=== PATIENT | male | born 1955 | race African-American/Black ===

== ENCOUNTER 2018-01-04 13:26 | Emergency (ER) | payer OTHER ==
[~2018-01-04] VITALS: Ht 180.3 cm; Wt 113.4 kg
--- NOTE | ~2018-01-04 | EKG ---
[place] [address] [place] [address] ELECTROCARDIOGRAM REPORT Name: MALCOMDANIEL MONROEWILFRIDO Room #: DEP Sergey#: [id number] Admission: 01/04/18 Attend Phys: Discharge: 01/04/18 Date of : 55 Report #: [id number] THIS REPORT FOR: //name// [facility] ED Test Date: 2018-01-04 Test Time: 13:35:35 Pat Name: DANIEL العراقي Department: Room: Gender: Tankerman: EMMY : 1955 Requested By: Pasquale Collins Order Number: [id number] MD: Sergio Ortega Measurements Intervals [place] Rate: 72 P: 37 [place]: 179 QRS: 9 QRSD: 95 T: 44 QT: 392 QTc: 430 Interpretive Statements Sinus rhythm Nonspecific ST and T wave abnormality Compared to ECG 02/19/2016 19:46:13 No significant change was found Electronically Signed On 01-07-2018 13:23:25 CDT by Sergio Ortega [email or web address] <ELECTRONICALLY SIGNED> By: Sergio Ortega MD, [facility] 01/07/18 1323 1335 1335 Sergio Ortega MD, FACC /EPI
[~2018-01-04 13:26] MED LIST: ACETAZOLAMIDE250 M1 PO; AMARYL4 MG; ASPIRIN325; AUGMENTIN 875-1 EACH PO; BACTROBAN CREAM30 GM TOP; CRESTOR20 MG; GLUCOPHAGE500 MG PO; IBUPROFEN 800800 M1 PO; IMDUR 30 MG TAB30 M1; JANUMET 50-5001 EACH PO; JANUVIA100 MG; LANTUS; LIPITOR40 MG PO; MONOPRIL20 MG; NEURONTIN 300300 M1; NITROGLYCERIN0.4 MG; NORCO 5-325 TA1 EACH PO; NORVASC10 MG; NOVOLOG100 UNIT/1; PLAVIX 75 MG TA75 MG; PRINIVIL10 MG PO; TOPROL XL50 MG
[2018-01-04 14:17] LABS: ABSOLUTE NEUTROPHILS 6.5 thou/uL (1.4-8.2); BASOPHILS 0.6 % (0.0-2.0); EOSINOPHILS 0.6 % (0.0-3.0); HEMATOCRIT 45.9 % (42.0-52.0); LYMPHOCYTES 20.6 % (24.0-44.0); MCH 27.7 pg (26.0-34.0); MCHC 32.7 g/dL (28.0-37.0); MCV 84.5 fL (80.0-100.0); MONOCYTES 9.2 % (1.0-8.0); PLATELET COUNT 242 thou/uL (150-400); RBC 5.43 mil/uL (4.50-6.00); RDW 15.1 % (10.5-14.5); WBC 9.4 thou/uL (4.0-11.0)
[2018-01-04 14:23] LABS: APTT 20.7 Seconds (24.5-32.8); PROTIME 10.5 Seconds (9.3-11.4)
[2018-01-04 14:53] LABS: ANION GAP 14 mmol/L (7-16); BUN 26 mg/dL (7-18); CALCIUM 10.9 mg/dL (8.5-10.1); CHLORIDE 99 mmol/L (98-107); CO2 26 mmol/L (21-32); CREATININE 1.8 mg/dL (0.7-1.3); GLUCOSE 379 mg/dL (74-106); POTASSIUM 4.2 mmol/L (3.5-5.1); SODIUM 139 mmol/L (136-145)
[2018-01-04 15:02] LABS: ALBUMIN 4.1 g/dL (3.4-5.0); MAGNESIUM 2.1 mg/dL (1.8-2.4); SGOT 48 U/L (15-37); SGPT 37 U/L (30-65); TOTAL BILIRUBIN 0.9 mg/dL (<0.1-1.0); TOTAL PROTEIN 8.6 g/dL (6.4-8.2); TROPONIN-I < 0.04 ng/mL (<0.06)
[2018-01-04] MEDS ORDERED: ASPIR 8181 MG PO (15:31)
[2018-01-04] MEDS ORDERED: CHLORTHALIDONE25 MG PO (15:33)
[2018-01-04] MEDS ORDERED: BETAMETHASONE V60 ML TOP (15:33)
[2018-01-04] MEDS ORDERED: TRAMADOL 50 MG50 MG PO (15:48)
== END 2018-01-04 16:47 | disposition home or self-care (01) ==
LOC: ER 13:26
PROVIDERS: Emergency Medicine
DX: S20.212A Contusion of left front wall of thorax, initial encounter (principal); S40.011A Contusion of right shoulder, initial encounter; S10.93XA Contusion of unspecified part of neck, initial encounter; H54.7 Unspecified visual loss; E11.22 Type 2 diabetes mellitus with diabetic chronic kidney disease; N18.9 Chronic kidney disease, unspecified; W10.9XXA Fall (on) (from) unspecified stairs and steps, initial encounter; Y93.89 Activity, other specified; Y92.89 Other specified places as the place of occurrence of the external cause; Y99.8 Other external cause status

== ENCOUNTER 2019-06-05 16:35 | Inpatient (IN) | payer OTHER ==
[~2019-06-05] VITALS: Ht 180.3 cm; Wt 105.7 kg
--- NOTE | ~2019-06-05 | EMS ---
[facility] [address] [place] [address] EMS Patient Care Report Name: DANIEL العراقي Room #: 525B-B ADM IN M.R.#: [id number] Admission: 06/05/19 Attend Phys: Jarred Caceres, Discharge: Date of : 55 Report #: [id number] THIS REPORT FOR: //name// Report Transmitted: 06/06/2019 07:14 EMS Care Summary [place], [place]/[facility] Incident [id number] @ 06/05/2019 15:43 Incident Location [address], [place] [address] Patient DANIEL العراقي Male, 64 Years 1955 Patient Address [address] [place] [id number] Patient History Diabetes,Hypertension,Cardiac - Stent, Patient Allergies No known allergies, Patient Medications Furosemide, Metformin, Gabapentin, Lisinopril, Chief Complaint SI Disposition Transported No Lights/[place] Dispatch Reason Diabetic Problem Transported To [facility] Narrative M36 DISPATCHED TO [facility] ON A REPORT OF A DIABETIC PROBLEM. UPON ARRIVAL ON SCENE EMS FIND 64/M PT SITTING ON COUCH IN LIVING ROOM OF [place]IDENCE IN NO APPARENT DISTRESS, PT TALKING TO MOLDER SETTER ON SCENE. MOLDER SETTER ON SCENE STATED SHE WAS CALLED TO SCENE FOR CONCERNS OVER PT LIVING CONDITIONS. DURING [address] [address] EMS Patient Care Report Name: DANIEL العراقي Room #: 525B-B ADM IN .R.#: [id number] Admission: 06/05/19 Attend Phys: Jarred Caceres, DO Discharge: Date of : 55 Report #: [id number] QUESTIONING EMS MOLDER SETTER INFORMED EMS THAT PT STATED HE WAS HAVING THOUGHTS OF SUICIDE AND PUT A HANDGUN TO HIS CHEST THE PRIOR NIGHT. PT AOX4, ADMITTED TO EMS ABOUT HAVING THOUGHTS OF SI AND THAT PT PLACED A HANDGUN TO HIS CHEST AND CONTINUED TO PULL THE TRIGGER WHILE THE GUN WAS UNLOADED. PT STATED HE HAD BEEN DEPRESSED FOR THE PAST COUPLE MONTHS. PT DENIED ANY OTHER PAIN OR MEDICAL COMPLAINTS. PT ESCORTED TO AMBULANCE BY POLICE AND EMS FOR FURTHER EVALUATION. PT SEATED ON STRETCHER IN POSITION OF COMFORT WITH STRETCHER GUARDRAILS PLACED IN UPRIGHT LOCKED POSITION AND SEATBELTS FASTENED. PT VITALS OBTAINED AND SUPPORTIVE CARE PROVIDED EN ROUTE TO [facility]. NO NOTICEABLE CHANGES IN PT CONDITION DURING TRANSPORT TO RECEIVING FACILITY. UPON ARRIVAL TO [facility] PT MOVED INTO FACILITY ON EMS STRETCHER, WHERE PT WAS THEN TRANSFERRED ONTO ER HOSPITAL BED BY EMS AND RECEIVING NURSING STAFF WITHOUT INCIDENT. PT REPORT GIVEN TO RECEIVING NURSING STAFF AND TRANSFER OF PT CARE COMPLETED. Initial Vitals @16:19P: 108,R: 16,BP: 176/80,Pain: 0/10,GCS: 15,Glucose: 302,CO: 0,SpO2: 99,Revised Trauma: 12, @16:24P: 102,R: 16,BP: 184/88,Pain: 0/10,GCS: 15,SpO2: 99,Revised Trauma: 12, Assessments @15:54MENTAL:Person Oriented,Time Oriented,Place Oriented,Event Oriented,SKIN:HEENT:Eyes: Left: Blind,LUNG SOUNDS:Left Upper: No Abnormalities,Right Upper: No Abnormalities,Left Lower: No Abnormalities,Right Lower: No Abnormalities,ABDOMEN:Left Upper: No Abnormalities,Right Upper: No Abnormalities,Left Lower: No Abnormalities,Right Lower: No Abnormalities,PELVIS//GI:EXTREMITIES:Left Leg: Weakness,Left Arm: No Abnormalities,Right Arm: No Abnormalities,Right Leg: No Abnormalities,PULSE:Radial: 2+ Normal,NEURO: Impression Behavioral/psychiatric episode Procedures @16:15StretcherResponse: Unchanged@15:53ALS AssessmentResponse: UnchangedSucceeded Timeline 15:40,Call Received 15:40,Dispatch Notified 15:43,Dispatched 15:44,En Route 15:49,On Scene 15:52,At Patient 15:53,ALS Assessment,Response: UnchangedSucceeded, 16:15,Stretcher,Response: Unchanged [address] [address] EMS Patient Care Report Name: DANIEL العراقي MONROEWILFRIDO Room #: 525B-B ADM IN .R.#: [id number] Admission: 06/05/19 Attend Phys: Jarred Caceres DO Discharge: Date of : 55 Report #: [id number] 16:19,BP: 176/80 M,PULSE: 108,RR: 16 R,SPO2: 99 Ox,ETCO2: ,B,PAIN: 0,GCS: 15, 16:20,Depart Scene 16:24,BP: 184/88 M,PULSE: 102,RR: 16 R,SPO2: 99 Ox,ETCO2: ,BG: ,PAIN: 0,GCS: 15, 16:30,At Destination 16:42,Call Closed Disclaimer v1.1 Copyright 2019 1.618 Technology This EMS Care Summary contains data elements from the applicable legal record (which may be displayed differently). It is designed to provide pertinent information for the following purposes: continuity of care, clinical quality, and state data reporting. The complete legal record is available to ED staff and administrators of the receiving hospital in [employer] Patient Tracker. All data is provided "as is."
[~2019-06-05 16:35] MED LIST changes: +ASPIR 8181 MG PO; +BETAMETHASONE V60 ML TOP; +CHLORTHALIDONE25 MG PO; +TRAMADOL 50 MG50 MG PO
[2019-06-05 16:36] VITALS: BP 185/123
--- NOTE | 2019-06-05 18:30 | NUR ---
THIS RN SPOKE WITH KAMILAH, DAUGHTER AND FELA, SPOUSE WHO BOTH STATE THAT PT HAS BEEN AGITATED AND AGGRESSIVE SINCE LAST MONDAY AND HAVE NOT BEEN OVER TO HIS HOUSE IN SEVERAL DAYS DUE TO FEAR OF HIS REACTIONS; THEY ARE IN ROUTE TO ED NOW
[2019-06-05 19:55] LABS: URINE BILIRUBIN NEGATIVE (Negative); URINE BLOOD TRACE (Negative); URINE CLARITY CLEAR; URINE COLOR YELLOW; URINE GLUCOSE-RANDOM* 3+ (Negative); URINE KETONES 1+ (Negative); URINE LEUKOCYTES-REFLEX NEGATIVE (Negative); URINE NITRITE-REFLEX NEGATIVE (Negative); URINE PROTEIN (DIPSTICK) 1+ (Negative); URINE UROBILINOGEN 0.2 E.U./dl (0.2-1.0)
[2019-06-05 19:59] LABS: ABSOLUTE NEUTROPHILS 3.6 thou/uL (1.4-8.2); BASOPHILS 0.9 % (0.0-2.0); EOSINOPHILS 1.4 % (0.0-3.0); HEMATOCRIT 44.2 % (42.0-52.0); HEMOGLOBIN 14.7 gm/dL (14.0-18.0); LYMPHOCYTES 39.7 % (24.0-44.0); MCH 28.4 pg (26.0-34.0); MCHC 33.3 g/dL (28.0-37.0); MCV 85.3 fL (80.0-100.0); MONOCYTES 8.4 % (1.0-8.0); PLATELET COUNT 221 thou/uL (150-400); POLYS 49.6 % (36.0-66.0); RBC 5.18 mil/uL (4.50-6.00); RDW 15.2 % (10.5-14.5); WBC 7.3 thou/uL (4.0-11.0)
[2019-06-05 20:03] LABS: ANION GAP 11 mmol/L (7-16); BUN 20 mg/dL (7-18); CALCIUM 9.7 mg/dL (8.5-10.1); CHLORIDE 102 mmol/L (98-107); CO2 24 mmol/L (21-32); CREATININE 1.5 mg/dL (0.7-1.3); GLUCOSE 377 mg/dL (74-106); POTASSIUM 4.3 mmol/L (3.5-5.1); SODIUM 137 mmol/L (136-145)
[2019-06-05 20:04] LABS: AMP/METHAMP Negative (Negative); BARBITURATES Negative (Negative); BENZODIAZEPINES Negative (Negative); COCAINE Negative (Negative); METHADONE Negative (Negative); OPIATES Negative (Negative); PCP Negative (Negative)
[2019-06-05 20:07] LABS: SALICYLATE < 2.8 mg/dL (2.8-20.0)
[2019-06-05 20:08] LABS: SQUAMOUS 0-3 Few /LPF (0-3)
[2019-06-05 20:09] LABS: MUCUS 0-3 Light strn/LPF (None Seen)
[2019-06-05 20:10] LABS: AMORPHOUS URATES Few /LPF (None Seen); BACTERIA-REFLEX 1-9 Few /HPF (None Seen); HYALINE CASTS 0-3 Few /LPF (None Seen); URINE RBC 0-2 Rare /HPF (0-2); URINE WBC-REFLEX 0-5 Rare /HPF (0-5)
[2019-06-05 22:00] VITALS: BP 161/89
[2019-06-05 22:16] VITALS: BP 147/79
--- NOTE | 2019-06-06 01:49 | NUR ---
STAT INSULIN ADMINISTRATION SQ GIVEN TO PATIENT. LANTUS 25U STAT AND HUMALOG 8U STAT FOR GLUCOSE OF 350 PER TELEPHONE ORDER FROM DR BILL. PATIENT IS SLEEPING AND DROWSY. PATIENT HAD GEODON INJECTION IN ER A FEW HOURS AGO. WILL RECHECK GLUCOSE IN ONE HOUR AND NOTIFY DR JONES IF STILL ABOVE 250.
[2019-06-06 02:10] VITALS: BP 147/79
--- NOTE | 2019-06-06 03:05 | NUR ---
REPEATED GLUCOSE CHECK AT 0245 AND THE READING WAS AT 343. NOTIFIED DR JONES BY PHONE AND HE SAID TO JUST REPEAT GLUCOSE BEFORE BREAKFAST AND WILL REASSESS WHAT WE NEED TO DO AT THAT TIME. DR DID NOT WANT TO GIVE MORE INSULIN AT THIS TIME IN FEAR OF IT KICKING IN AND CAUSING HIM TO GO TOO LOW. PATIENT IS SLEEPING COMFORTABLY. STATES WE CAN ASSESS WHEN PATIENT WAKES UP IF HE NEEDS A 1:1 WITH HIM BASED ON HIS BEHAVIORS WITH HIS SI. WILL CONTINUE TO MONITOR.
[2019-06-06 14:41] LABS: CHOLESTEROL 209 mg/dL (<200); HDL CHOLESTEROL 35 mg/dL (>40); LDL CHOLESTEROL 123 mg/dL (<100); SERUM ASSESSMENT Clear; TRIGLYCERIDE 255 mg/dL (<150); VLDL 51 mg/dL (<40)
--- NOTE | 2019-06-06 15:53 | NUR ---
PATIENT HAS BEEN UP AND OUT ON THE UNIT, HE IS ALERT AND ORIENTED X 3-4, ABLE TO VOICE NEED. PATIENT TOOK ALL HIS MEDICATION WHOLE WITHOUT DIFFICULTY. PATIENT IS EATING MEALS AND DRINKING FLUID WELL. PATIENT DENIES SUICIDAL AND HOMOCIDAL IDEATION. HE DENIES DEPRESSION/ANXIETY. PATIENT REQUIRES GUIDED JARAD WITH AMBULATION RELATED TO BLINDNESS. PATIENT HAS A CANE, BUT UNABLE TO MANEUVER DUE TO UNFAMILIER ENVIRONMENT. PATIENT HAS BEEN CALM, COOPERATIVE WITH CARE. PATIENT EXPRESSED HIS SADNESS, STATES " I WAS LAYING DOWN IN MY HOUSE, AND THEY SHOWED UP AND BROUGHT ME HERE, WHY I DO NOT KNOW". PATIENT HAS BEEN PARTICIPATING IN ALL GROUP THERAPY. HE DENIES HAVING PHYSICAL PAIN AT THIS TIME. NO AGGRESSION OR AGITATION NOTED AT THIS TIME. PATIENT'S GOAL AND CONCERN TODAY IS "TO GET THE HELL OUT OF HERE". NO SIGN AND SYMPTOMS OF HYPER/HYPOGRLYCEMIA NOTED, INSULING GIVEN PER ORDER, WILL MONITOR FOR SAFETY.
[2019-06-06 21:41] VITALS: BP 125/80
[2019-06-06 23:06] LABS: GLYCOHEMOGLOBIN (HGB A1C) 11.9 % (4.8-5.6)
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
[2019-06-07 09:08] VITALS: BP 145/86
--- NOTE | 2019-06-07 12:51 | NUR ---
MAYLIN spoke with Yanci Fajardo DEGREASING WHEEL OPERATOR with Adult protective services [phone], and she provided information regaridng this pt's home conditions. She reported that this pt had sought out mental health services a few days ago for SI with [facility] , and they were going to help him with suicide prevention services but due to his $3000 a month income they could not provide case management. This pt will refuse any paid in home help, LTC or family to help out. His home is in disarray and his kitchen is unusable. He has bags of medications that he is not taking and has not managed his diabetes. He has safety hazrds including stairs in the home. This pt has a HX of anger and behavorial issues that impede getting the help he needs in the home. Yanci Fajardo recomends that this pt find placement in LTC and is willing to be a resource for social HX and what the outcome is.
--- NOTE | 2019-06-07 18:34 | NUR ---
ASSUMED CARE AT 1300. PT IN DAY ROOM ASKING WHEN HE IS GOING HOME. PT KEEPS STATING THAT HE IS SUPPOSED TO BE LEAVING TODAY. PT QUESTIONING IF HE HAS CLOTHES LEFT BY FAMILY. FAMILY DID LEAVE A BAG OF CLOTHES THAT NEED TO BE INVENTORIED BY STAFF.
[2019-06-07 19:20] VITALS: BP 152/103
--- NOTE | 2019-06-07 22:54 | NUR ---
Care assumed of patient at 1915: Patient alert and oriented x3, disoriented with current situation. Patient easily agitated and irritable this evening. Patient frustrated with not being able to go home today. Patient states that people are lying to him. When asked why he was in the hospital, patient gave multiple stories. Patient first stated that he was here because he just wanted to "come check it out". Patient then stated that he did have a gun but he never pulled the trigger. When asked about SI, patient states that he has occasional thoughts because he doesn't like people taking advantage of him and lying to him. Patient denies HI/AH/VH at this time. Patient appears paranoid about his surroundings, his family and his personal belongings. Patient states "everyone is out to get me". Patient did report feeling depressed due to the loss of multiple family members at once and their birthdays being this month and next month. Reports that this is a "hard time of year" for him. Patient enjoyed listening to the baseball game in the day room this evening. Personal inventory was logged and patient was provided with his clothing and his talking wrist watch. Patient declined HS snack but did consume 480cc water with encouragement.
[2019-06-08 05:09] LABS: CREATININE (ALB/CR) 117.5 mg/dL (Not Estab.); MICROALB:CREAT 55.7 (0.0-30.0); MICROALBUMIN-RND URINE 65.4 ug/mL (Not Estab.)
[2019-06-08 08:38] VITALS: BP 137/92
--- NOTE | 2019-06-08 09:44 | NUR ---
07: Report rec from noc shift, care assumed. Pt sitting in tv/dining room, alert, visiting with other pts. : Ambulatory with walker in DR, feeds self a.m. meal, takes meds whole w/o difficulty. Pt voices that he "wants to leave and that this whole thing is bull shit." Pt educated about dismissal protocol, safety and that psychiatrist will be in today to discuss options. Pt became angry, stating "there isn't even a real Dr here." "I don't see anyone here who is aware or knows why I'm being held here." Unable to distract pt or re-direct with current events or activities. Attended 899 therapy group, observed sleeping during group, no participation noted.
--- NOTE | 2019-06-08 16:21 | NUR ---
MAYLIN called Briseida Hui, Pt's ex to schedule a meeting for 06/09/19 @ 1pm
[2019-06-08 19:25] VITALS: BP 149/94
--- NOTE | 2019-06-09 00:05 | NUR ---
Care assumed of patient at 1915: Patient alert and oriented x3, disoriented on situation. Patient irritable regarding admission and states that he wants to go home. Patient in denial about what had occurred prior to admission to the hospital. Patient had 2 different phone calls this evening. Patient pleasant and cooperative with cares. Patient states that he is "fine". Denies pain or discomfort. Took HS medication without difficulty. Patient declined HS snack. Patient encouraged to drink large cup of water and was compliant. Patient enjoyed listening to the football game with peers this evening. Patient assisted to bed with staff assist x1 and has been resting quietly since.
[2019-06-09 09:13] VITALS: BP 117/76
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
--- NOTE | 2019-06-09 11:04 | NUR ---
ASSUMED CARE OF PT AT 0740. PT IS A&OX4. IS ON ROOM AIR. IS STABLE. REPORTS BACK PAIN THAT IS BEING MANAGED WITH TYLENOL. IS UP WITH CONTACT GUARD ASSIST & WALKER. PT IS LEGALLY BLIND. IS ABLE TO SEE SHADOWS. FALL PRECAUTIONS & FREQUENT ROUNDING MAINTAINED. PT IS CURRENTLY IN THE DINNING ROOM TALKING WITH THE OTHER PATIENTS. WILL CONTINUE TO MONITOR.
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
[2019-06-09 20:14] VITALS: BP 158/110
[2019-06-09 23:02] VITALS: BP 158/82
--- NOTE | 2019-06-10 00:35 | NUR ---
ASSISTED PATIENT TO HIS ROOM FOR BED TONIGHT. HE IS FRUSTRATED WITH DR BILL. HE STATES HE TOLD HIM THAT HE COULD GO HOME AND ALSO TOLD HIM HE HAD PASSED THE TEST. HE STATES THAT NOW DR BILL SAYS HE CANNOT GO HOME AND HE FEELS LIKE HE IS PLAYING GAMES WITH HIM. HE STATES HE IS GOING TO CALL THE MEDIA ON THIS ONE. WE TALKED AND DISCUSSED WITH HIM THAT THE DOCTOR WANTS TO MAKE SURE THAT PATIENT HAS A DPOA SAT UP FOR HIS HEALTH BEFORE HE GOES HOME. PATIENT STATES THAT HIS EX IS HIS DPOA. LET PATIENT GO ON TO TALK SOME MORE. THIS NURSE LISTENED AND TOLD HIM THERE WAS NOTHING THAT COULD BE DONE TONIGHT BUT TOMORROW IS ANOTHER DAY AND HE NEEDS TO GET HIS REST SO HE CAN TACKLE THIS SITUATION WITH A CLEAR MIND. PATIENT UNDERSTOOD AND LAID DOWN AND HAS BEEN SLEEPING SINCE. HE WAS ALSO CONCERNED BECAUSE HE HAD NOT RECEIVED HIS EYE GTTS FROM HOME. THE EYE GTTS WERE HERE TONIGHT AND WERE APPLIED TO RIGHT EYE. PATIENT CONFUSED ON EVENTS THAT HAPPENED ON HIS ADMISSION. HE STATES HE JUST CAME UP HERE TO SEE THE FACILITY AND ENDED UP HAVING TO STAY. PATIENT IS LEGALLY BLIND AND DOES AMBULATE WITH HELP WITH HIS WALKER. NO OTHER ISSUES AT THIS TIME. CONTINUING TO MONITOR.
[2019-06-10 09:41] VITALS: BP 153/107
--- NOTE | 2019-06-10 17:04 | NUR ---
SW assisted the pt with completing the DPOA documentation. Pt was willing to make his ex- the primary, and niece Katerine the secondary. SW assisted with it getting notarized by a notary.
--- NOTE | 2019-06-10 17:49 | NUR ---
0700: Report rec from [facility] mon[facility] shift, care assumed. 0850: Ambulatory to DR, useing walker for assist, gait steady. Pt refused a.m. meal, 0900 meds, and insulin. Pt making statements to this nurse "I don't give a shit if I ." "i'm not taking anything from you or anyone else." Dr. reno notified of elevated b/p, (154/107) and pts refusal to take HTN meds,new order for clonidine patch. Dr. stevenson here, notified of pts refusal and new order from Dr. Reno. 1130: Pt refused clonidine patch, pulled it off, 3 staff members attempted to educate and re-direct pt, w/o success. 1500: Pt started on Haldol 1mg po BID, initial dose started, pt cooperative with taking medications. 1600: Family here, pt pleasant and ccoperative. Insulin 75/25, 30 units given.
[2019-06-10 19:58] VITALS: BP 114/63
--- NOTE | 2019-06-10 23:23 | NUR ---
PATIENT IN BED SLEEPING BUT EASILY AWAKENED WHEN ADDRESSED WHEN THIS NURSE CAME ON SHIFT TONIGHT. PATIENT PLEASANT AND COOPERATIVE. NO COMPLAINING OR AGITATION TONIGHT. PATIENT TOOK HIS MEDS. HE TOOK HIS NEW ORDER OF HALPERIDOL 1MG AT HS. HE IS TO BEGIN HALPERIDOL 2MG BID IN THE MORNING. PATIENT IS TOLERATING WELL. EYE GTTS TO RIGHT EYE PLACED. PATIENT HAS NOT HAD BM FOR 4 DAYS NOW. DID NOT WANT TO TAKE ANYTHING TONIGHT FOR BOWELS. BOWEL SOUNDS HYPOACTIVE IN ALL 4 QUADRANTS. ABDOMEN SOFT. PATIENT SLEEPING AT THIS TIME. WILL CONTINUE TO MONITOR.
[2019-06-11 00:16] VITALS: BP 114/63
--- NOTE | 2019-06-11 02:00 | NUR ---
ASSISTED PATIENT TO THE BATHROOM. HE URINATED ON HIMSELF BEFORE GETTING TO THE TOILET. HELPED HIM WITH CLEAN UP AND WASHED URINE OFF AND CLEANED FLOOR AND PUT NEW PANTS AND YELLOW NON SLIP SOCKS ON PATIENT. PATIENT FRUSTRATED THAT HE KEEPS DOING THIS. DISCUSSED THAT HE HAD BEEN SLEEPING SOUND AND AWOKE TO URGENCY AND THAT PROSTATE AND HIGH DIABETES SUGARS CAN CAUSE THIS SOME TOO. PATIENT REMAINED CALM AND COOPERATIVE AND THANKED ME FOR HELPING HIM. HE STATES HE WAS DREAMING ABOUT THE RAILROAD AND THAT HE MISSES WORKING FOR THE [employer]. WE TALKED BRIEFLY AND HE WENT BACK TO TRY AND SLEEP. DISCUSSED USING A DISPOSABLE BRIEF D/T HIS URGENCY ON URINATION AND DRIBBLING. EXPLAINED THIS IS NOT UNCOMMON PROBLEM WE AGE. PATIENT REFUSING DISPOSABLE BRIEF AT THIS TIME. PATIENT IN CLEAN GOWN AND SCRUB PANTS. DENIES PAIN. LAST GLUCOSE AT 0130 WAS 188.
--- NOTE | 2019-06-11 03:35 | NUR ---
PATIENT LAYING IN BED RESTING BUT AWAKE. STATES HE WANTS TO TALK TO THE DOCTOR ABOUT HIS PROSTATE AND URINE FREQUENCY WHEN THEY COME BY TODAY. PATIENT HAS NOT HAD A BOWEL MOVEMENT SINCE 06/06 AND TOLD HIM I WOULD HAVE DAY SHIFT GET AN ORDER TO START SOME MEDICATION TO MOVE HIS BOWELS. HE SAID HE WOULD LIKE THAT. PATIENT IN HOPES OF GOING HOME TODAY OR TOMORROW BUT IS CAUTIOUS IN ADDING THAT HE WAS TOLD HE WOULD GO HOME BEFORE AND IT DID NOT HAPPEN. HE IS PLEASANT AND COOPERATIVE AND EVEN LAUGHING A LITTLE.
--- NOTE | 2019-06-11 08:34 | NUR ---
Date of Admission: 06/05/19 Date of Activity Therapy Assessment: 06/08/19 Activity Goal: Increase leisure modification awareness Initial Goal: 2 Group activities/day Weekly progress towards goal: On track Group participation level: Moderate Behaviors observed: Patient has attended most groups and the few he has missed have been r/t agitation. Patient participates in groups, though only moderately as much of his focus is aimed towards dissatisfaction with being admitted to the unit and his perceptions of being lied to. Patient can be difficult to refocus at times upsetting milieu. Plan: No change towards goal
--- NOTE | 2019-06-11 13:41 | NUR ---
0700: Report rec from [facility] shift, care assumed. [id number]: Ambulatory with walker in halls, and to DR, mood is cooperative, compliant with staff and regiment. Gait steady/slow, requires guidance of staff due to blindness. Feeds self, appeitite good, takes meds whole w/o difficulty. Attended 0900 therapy group, participated in group with out outbursts.
[2019-06-11 16:30] VITALS: BP 119/87
[2019-06-11 19:46] VITALS: BP 144/82
--- NOTE | 2019-06-11 20:21 | NUR ---
ASSUMED CARE @ 19:15. IN DAY ROOM SITTING AT A TABLE FACING THE TELEVISION. ASKED FOR MEDS FOR CONSTIPATION. DENIES PAIN. HRRR, LUNGS CTA, ABD NORMOACTIVE BOWEL SOUNDS X 4 Q.
--- NOTE | 2019-06-11 23:01 | NUR ---
PATIENT COOPERATED WITH MEDICATION ADMINISTRATION, AND TOOK HIS PO MEDS WHOLE WITH WATER. HE TOOK THE MOM THAT HE HAD REQUESTED, BUT GRUMBLED ABOUT IT. DENIES HI, SI AND DEPRESSION. URINAL PROVIDED AT BEDSIDE. FSBS 101 @ 21:10. IN BED AT THIS WRITING, EYES CLOSED, RESPIRATIONS EVEN AND UNLABORED, BED IN LOW POSITION AND ALARM SET. WILL CONTINUE TO MONITOR Q 12 MINUTES FOR PATIENT SAFETY.
[2019-06-11 23:44] VITALS: BP 144/82
--- NOTE | 2019-06-12 05:48 | NUR ---
SLEPT 8 HOURS OVERNIGHT.
[2019-06-12 08:00] VITALS: BP 131/85
--- NOTE | 2019-06-12 18:35 | NUR ---
PATIENT ACCEPTED ALL MEDS THIS SHIFT. REMAINED CALM THROUGHOUT SHIFT AND ABLE TO VERBALIZE NEEDS. PATIENT PARTICIPATED IN ALL GROUPS. PATIENT IN DINING ACUNA THROUGH SHIFT UNTIL APPROX 18:00.
[2019-06-12 19:24] VITALS: BP 146/89
--- NOTE | 2019-06-12 22:41 | NUR ---
PATIENT'S GLUCOSE ACCUCHECK WAS 307 TONITE. IT WAS CHECKED 30 MINUTES AFTER PATIENT HAD EATEN HAMBURGER AND SRI LANKAN FRIES. PATIENT SAT UP IN DAYROOM THIS EVENING AND HAS BEEN PLEASANT AND COOPERATIVE. ASSESSMENT WNL. HS MEDS GIVEN TO HIM AND PATIENT WENT TO BED AROUND 0. PATIENT WITHOUT COMPLAINTS. WILL CONTINUE TO MONITOR. PATIENT AMBULATES WITH WALKER. HE IS LEGALLY BLIND BUT DOES TRY TO BE INDEPENDENT POSSIBLE. NEEDS ASSISTANCE ON WHICH DIRECTION TO GO AND FOLLOWS THE LIGHT/SHADOWS AND FEELS FOR THE WALL/DOOR.
[2019-06-12 23:27] VITALS: BP 146/89
[2019-06-13 09:14] VITALS: BP 119/61
--- NOTE | 2019-06-13 15:32 | NUR ---
UPON INITIAL ASSESSMENT THIS AM WAS COOPERATIVE AND PLEASANT-COMPLIENT WITH AM MEDICATION AND APPRECIAITVE OF ASSITANCE OFFERED BY NURSING STAFF. USING ROLLER WALKER AND SBA AND AMBULATES TO BR-TOLERATES THIS WELL. SOCIAL WITH PEER GROUP. AT APPROX 1430 NOTED TO BECOME MORE COMPLAINTIVE,ANGRY FACIAL EXPRESSION,DEMANDING TO TALK TO THE DOCTOR-STATING "HE IS A LIAR-HE HAS BEEN LYING TO ME THE WHOLE TIME-THIS PLACE IS MAKING ME WORSE AND HE KNOWS IT"SPENT APPROX 20 MINUTES SPEAKING WITH MD PER HIS REQUEST AND NOTED TO BECOME INCREAINGLY AGITATED-YELLING AND SCREAMING AT MD. OFFERED ATIVAN FDOR ANXIETY/AGITATION BUT HE REFUSES STATING"I KNOW WHAT YOU ARE TRYING TO DO PUT ME TO SLEEP"
--- NOTE | 2019-06-13 17:39 | NUR ---
SW sent 3 referral to [facility], [facility] into [facility]. MAYLIN will follow-up with the [facility] to see if pt will be accpeted or evaluated for admission.
[2019-06-13 20:07] VITALS: BP 146/85
--- NOTE | 2019-06-13 22:49 | NUR ---
PATIENT APPEARS SLEEPY AND WORN OUT HE SAT IN DINING ROOM TONITE. HE STATES HE DOES FEEL TIRED. HE DENIES ANY PAIN OR DISCOMFORT. HE IS QUIET AND TO HIMSELF MORE. HE LOOKS SAD. WHEN I ASK ABOUT HOW HIS DAY WAS HE IS UNABLE TO RECALL MUCH. JUST SAYS IT WAS LONG. PATIENT'S GLUCOSE WAS 246 TONITE AFTER EATING HIS SNACK OF SF COOKIES. PATIENT IS LEGALLY BLIND AND USES WALKER TO AMBULATE. ASSISTED PATIENT BACK TO ROOM. URINAL ON SIDERAIL FOR PATIENT TO VOID AT NIGHT. STOOL SOFTNER GIVEN TO PATIENT AT . LAST STOOL 3 DAYS AGO AND HAS HAD SMEARINGS OF STOOL TODAY. PATIENT WAS PLEASANT AND COOPERATIVE TONITE AND TOOK ALL OF HIS MEDS. BED ALARM ON AND BED IN LOW POSITION.
[2019-06-13 23:52] VITALS: BP 146/85
--- NOTE | 2019-06-14 01:46 | NUR ---
PATIENT UP TO THE BATHROOM WITH GUIDANCE ASSISTANCE TO RESTROOM BY SR. MEDIA MANAGER. WHEN I WENT BACK TO CHECK ON PATIENT AFTER HE WENT BACK TO BED, HE WAS LAYING IN BED WIDE AWAKE. I ASKED IF HE NEEDED SOMETHING TO SLEEP. HE STATES HE IS JUST THINKING. HE SAID HE WANTS OUT OF HERE SO BAD AND HE THINKS DR BILL THINKS HE CAN'T TAKE CARE OF HIMSELF BECAUSE OF HIS EYESIGHT. I TOLD HIM THAT THE DOCTOR IS CONCERNED ABOUT THE PATIENT AND HIS MEMORY. HE STATES HE DOES NOT HAVE MEMORY ISSUES AND THAT HE NEEDS TO GET HOME TO TAKE CARE OF HIS HOUSE. PT WAS CALM BUT SAD AND REFLECTIVE. DOESN'T WANT ANYTHING TO SLEEP AND JUST WANTS TO THINK. TOLD HIM I'M AVAILABLE IF HE WISHES TO TALK MORE. HE THANKED ME AND SAID HE WAS OK. WILL CONTINUE TO MONITOR.
--- NOTE | 2019-06-14 04:47 | NUR ---
PATIENT UP AT 0410 THIS MORNING. HE STATES HE IS WANTING TO GET UP AND WASH UP. HE IS WANTING TO GET CLEAN PERSONAL UNDERWEAR AND SHIRT TO WEAR AND A NEW PAIR OF YELLOW NONSLIP SOCKS. ASSISTED PATIENT TO BATHROOM AND GOT HIM SET UP WITH TOWEL, WASH CLOTH, SOAP, AND DEODORANT. PATIENT WASHED UP. BEFORE I HAD WALKED HIM TO THE BATHROOM HE WAS SITTING UP THINKING AND ASKED IF HE COULD GET HIS MONEY FROM SECURITY. HE SAID THAT HE NEEDED TO TAKE CARE OF SOME THINGS AT HIS HOME. HE SAID THE YARD NEEDS MOWED AND HE NEEDS TO PAY SOMEONE TO MOW IT. HE WANTED TO GIVE IT TO A FAMILY MEMBER OR FRIEND TO PAY FOR THE WORK TO GET DONE. I ENCOURAGED HIM TO WAIT FIRST AND SEE IF HIS EX HAD DONE ANYTHING FIRST. HE SAID, YOU ALL ARE JUST TRYING TO GIVE HER CONTROL OVER ME. I TOLD HIM I WAS NOT DOING ANYTHING OF THE SORT. I EXPLAINED THAT SHE KNEW HE WAS HERE AND WHAT WAS GOING ON AND ALOT OF TIMES IN THESE SITUATIONS THE PEOPLE WHO KNOW WILL CHECK ON THE PATIENT'S HOUSE AND HELP WITH THINGS WHILE PATIENT IS IN THE HOSPITAL. HE CALMED DOWN AND AGREED TO WAIT. WHILE HE WAS WASHING UP IN THE BATHROOM, PATIENT STATES HE IS GETTING A HEADACHE. HE THOUGHT MAYBE IT WAS FROM HIS EYES. HE WAS GIVEN IBUPROFEN 600MG AND LORAZEPAM 1MG FOR ANXIETY AND TO HELP HIM RELAX. HE AGREED TO THE LORAZEPAM TO HELP HIM RELAX. I WALKED HIM BACK TO HIS BED AND HE DECIDED TO LAY DOWN AND LET THE MEDICINE WORK TO HELP HIS HEADACHE AND WILL CHANGE INTO HIS CLEAN CLOTHES WHEN HE GETS UP A LITTLE LATER THIS MORNING. CONTINUING TO MONITOR. PATIENT HAS BEEN SITTING UP OFF AND ON ALL NIGHT WORRYING ABOUT HOW TO GET OUT OF HERE AND TAKE CARE OF THINGS AROUND HIS HOME. PATIENT RESTING IN BED AT THIS TIME.
--- NOTE | 2019-06-14 05:32 | NUR ---
CHECKED ON PATIENT AND PAIN STATUS. PATIENT RESTING IN BED WITH EYES CLOSED. HE STATES HIS HEADACHE IS DOWN TO A ONE ON SCALE OF ONE TO 10. PATIENT APPEARS VERY RELAXED AND BEGINS TALKING. HE STATES HE HATES TO NOT BE BUSY. HE SAYS WHEN HE'S NOT BUSY, HE FINDS HIMSELF THINKING ABOUT THINGS TOO MUCH AND CAN GET UPSET WITH HIS THOUGHTS. HE STATES HE IS FEELING ALOT MORE RELAXED AND DOESN'T KNOW WHY HE GETS SO WORKED UP. HE STATES ALL HE WANTS IS TO BE HAPPY. HE STATES HE WANTS AN NICE HOME AND A GOOD FAMILY. HE SAYS HE HAS FALLEN A COUPLE OF TIMES AT HOME AND HE BROUGHT HIMSELF TO THE HOSPITAL TO BE CHECKED OUT WHEN HE HIT HIS HEAD. IT BOTHERS HIM THAT HE HAS FALLEN AND HE CAN'T SEEM TO FIGURE OUT WHY HE FALLS. WE DISCUSSED AGING AND GIVING UP CONTROL IN OUR LIVES, HIS SARA IN [employer] AND HIS WANTING TO GET AGAIN AND HOW HE REGRETS HOW HE HAS MESSED UP RELATIONSHIPS IN THE PAST. PATIENT IS CALM AND DROWSY. HE STATES HE FEELS MUCH BETTER AND WILL JUST REST SOME MORE BEFORE GETTING UP FOR BREAKFAST.
[2019-06-14 09:16] VITALS: BP 142/87
[2019-06-14 09:17] VITALS: BP 148/71
--- NOTE | 2019-06-14 10:03 | NUR ---
Assess for length of stay. Admit to [facility] unit with depression and suicidal ideation. Hx diabetes, poor controlled with A1C 11.9. Endocronogist has assessed and BG improving significantly. Also hyperlipidemia chol 209, triglycerides 255. Pt resting in room ,eyes closed at time of visit. Awake enough to answer yes/no questions. Stated appetite is good, no hx wt changes, enjoys the meals. Eating 100%. Low nutrition risk
--- NOTE | 2019-06-14 11:21 | NUR ---
0700: Report rec from noc shift, care assumed. [id number]: Ambulatory with walker to bathroom and to DR with staff guidance given due to pt blindness. Gait steady/slow/safe with walker. Feeds self with food orientation given, takes meds whole w/o difficulty. Alert, oriented to name and place. Cooperative with staff and pleasant with other pts.
[2019-06-14 19:48] VITALS: BP 153/93
--- NOTE | 2019-06-14 22:25 | NUR ---
Care assumed of patient at 1915: Patient resting in bed at start of shift. Patient wanted to get up and listen to the news around 9pm. Patient took HS medication without difficulty. Patient has been pleasant and cooperative. Patient declined HS snack. Patient presents with flat affect, depressed mood. Patient declined to come to dining room during HS snack, appears that he is isolating self at times. Patient alert and oriented x4. Patient easily irritable when discussing current situation. Patient denies SI/HI/AH/VH. No s/s of delusional or paranoia behaviors. Denies pain or discomfort. Patient currently sitting in the day room listening to the news.
--- NOTE | 2019-06-15 10:17 | NUR ---
0700: Report rec from noc shift, care assumed. [id number]: Pt requires encourage and assist with ADL's due to impaired eye sight, ambulatory with walker and staff stand-by to BR and to DR. Feeds self with directional instructions given, appetite good, takes meds whole w/o difficulty. Mag Citrate given with brk for constipation. Attended 0900 group therapy, no participation observed, sleeping during group. Pleasant and cooperative with staff.
[2019-06-15 10:32] VITALS: BP 116/77
[2019-06-15 19:55] VITALS: BP 138/89
--- NOTE | 2019-06-15 23:43 | NUR ---
PT AMBULATING FROM ACTIVITIES ROOM TO PT ROOM WITH WALKER AND ASSIST X1 AND IS TOLERATING FAIR. DENIES PAIN. VOIDING PER TOILET OR URINAL. RESTING COMFORTABLY. NO NEEDS VOICED. WILL CONTINUE TO PROVIDE FREQUENT OBSERVATION.
--- NOTE | 2019-06-16 07:35 | NUR ---
PT STATED HE FEELS TIRED TODAY, PT STATED HE HAS FELT TIRED FOR X3 DAYS NOW. PT TAKING HALDOL 4MG TWICE A DAY AND STARTED 3 DAYS AGO, POSS ADJUSTING TO MEDICATION. PT LUNGS CLEAR AND ON ROOM AIR. PT STATED HIS BACK PAIN IS 3 ON 1-10 SCALE. PT BOWELS HAVE MOVED TODAY.
[2019-06-16 08:00] VITALS: BP 147/80
[2019-06-16 09:36] VITALS: BP 147/80
--- NOTE | 2019-06-16 12:00 | NUR ---
PT STATED HE DIDN'T HAVE HEADACHE ANYMORE OR DIZZINESS, PT STATED HE FEELS BETTER AFTER NAP FROM TIREDNESS. PT STATED IN MORNING MEAL HE FEELS TIRED AFTER AND WANTS TO LAY DOWN.
--- NOTE | 2019-06-16 18:11 | NUR ---
PT HAS BEEN CALM TODAY. NO OUTBURST OR DEMANDING TO LEAVE.
[2019-06-16 19:59] VITALS: BP 144/89
--- NOTE | 2019-06-17 01:19 | NUR ---
PT AMBULATING IN HALLS WITH WALKER AND ASSIST AND IS TOLERATING FAIR. VOIDING PER URINAL/BEDSIDE COMMODE. DENIES PAIN. RESTING COMFORTABLY. WILL CONTINUE TO PROVIDE FREQUENT OBSERVATION.
[2019-06-17 07:30] VITALS: BP 120/84
[2019-06-17 09:02] VITALS: BP 120/84
--- NOTE | 2019-06-17 09:10 | NUR ---
PT STATED HE WANTED A SHOWER TODAY. PT ALSO STATED HE DIDN'T KNOW WHAT WAS WRONG WITH HIS EYES. PT GETTING EYE DROPS TO RT EYE. RT EYE AND LEFT EYE HAS SOME DRYNESS AROUND LASHES, RT EYE SEEMS RED. PT LUNGS CLEAR. PT STATED HE THINKS HE IS TAKING TOO MANY MEDS. PT UP WITH WALKER WITH ASSIST TO BATHROOM.
--- NOTE | 2019-06-17 11:50 | NUR ---
SW left a voicemail for pt (DPOA). SW provided the contact information in requested the phone back.
--- NOTE | 2019-06-17 17:37 | NUR ---
MAYLIN and Dr. Caceres met with pt DPOA concerning his d/c home. MAYLIN mention that the pt will not be able to stay at home by himself, and will need consistent care with his medication, and medical needs. MAYLIN explained that the pt will need someone to assist with his insulin, and make sure he is eating a well balance meal. Briseida mention that pt will not be left at home by himself. She mention that pt will have a nurse from 6:00pm to midnight, and Katerine will be there from midnight to 8;00am, and pt will be at [facility]. MAYLIN explained that if the pt is not given his medication properly or left at home in emergency occur that the DPOA can be held account for abuse and neglect. Briseida mention that she understand the risk, and she is willing to take care of him. MAYLIN mention that she will follow up with the pt family upon d/c. MAYLIN requested information for the Adult Day Care, and the sitter. Briseida mention that will provide that information on June 18, 2019. MAYLIN will schedule a psychiatrist appointment for the pt for continuance care.
[2019-06-17 19:59] VITALS: BP 133/87
--- NOTE | 2019-06-17 21:50 | NUR ---
Care assumed of patient at 1915: Patient seated in chair in the day room. Patient presents with flat affect. Patient resting with eyes closed. Easily arousable. Patient listening to the baseball game with peers. Patient alert and oriented x4. Patient reports concerns about getting affairs in order before returning home. Patient would not ellaborate. Patient spoke with a gentleman on the phone for several minutes. Patient complained about number of pills prescribed at HS. Education and description of each medication provided. Patient took HS medications without difficulty. Patient denies pain or discomfort. Patient reports that another staff told him his eye appeared swollen. Eyes do not appear swollen this shift. No redness, drainage or swelling observed. Denies pain or discomfort to his eyes. Prescription eye drops administered per MD order. Patient assisted to bed with standby assist due to patient vision loss. Patient resting quietly in bed at this time.
--- NOTE | 2019-06-18 08:21 | EKG ---
[place] [address] [address] [place] [address] ELECTROCARDIOGRAM REPORT Name: العراقيDANIEL [facility] IN M.R.#: [id number] Admission: 06/05/19 Attend Phys: Jarred Caceres DO Discharge: Date of : 55 Report #: [id number] THIS REPORT FOR: //name// [facility] Test Date: 2019-06-17 Test Time: 17:33:54 Pat Name: DANIEL العراقي [facility] Gender: M Maintenance Supervisor Electrical: Lu DIEZ : 1955 Requested By: Jarred Caceres Order Number: [id number] MD: Sergio Ortega Measurements Intervals [place] Rate: 90 P: 16 FL: 183 QRS: 19 QRSD: 90 T: 207 QT: 337 QTc: 413 Interpretive Statements Sinus rhythm Probable left atrial enlargement Probable anteroseptal infarct, old Nonspecific T abnormalities, lateral leads Compared to ECG 01/04/2018 13:35:35 Septal Q waves are more prominent Electronically Signed On 06-18-2019 8:20:53 CDT by Sergio Ortega [email or web address] <ELECTRONICALLY SIGNED> By: Sergio Ortega MD, [facility] 06/18/19 0820 1733 1733 Sergio Ortega MD, [facility] /EPI
[2019-06-18 08:46] VITALS: BP 152/89
--- NOTE | 2019-06-18 09:28 | NUR ---
PATIENT UP IN FOR BREAKFAST. ATE WELL - VERY TIRED. STATED SLEPT WELL BUT NODDING OFF ASSESSED. [id number] COMPLIANT. RESPONSIVE TO QUESTIONS ADDRESSED TO HIM. PATIENT PARTICIPATED IN MORNING GROUP BUT FELL OFF TO SLEEP. HAD TO BE AROUSED SEVERAL TIMES. PATIENT CALM AND AGREEABLE. BLOOD SUGAR 93 IN MORNING. HELD INSULIN BUT ADMINISTERED ORAL MEDICATIONS FOR DIABETES. PATIENT STATED UNABLE TO STAY AWAKE FOR MORNING ACTIVITES.
[2019-06-18 20:07] VITALS: BP 155/87
--- NOTE | 2019-06-18 21:27 | NUR ---
ASSUMED CARE OF THE PT AT 191 PM. ALERT ET ORIENTED X 3, THE PT IS BLIND. WALKS WITH A WALKER, HAS A FAIRLY STEADY GAIT. HEART RATE REGULAR, LUNGS CLEAR BILATERALLY, RESP., EVEN, AND UNLABORED. +BS HEARD IN ALL 4 QUADRANTS. ABD SOFT ET NON TENDOR. +PP BILATERALLY. DENIES PAIN AT THIS TIME. DENIES ANXIETY AND DEPRESSION, DENIES SI AND HI. REMAINS ON 12 MINUTE CHECKS FOR HIS HISTORY.
[2019-06-19] MEDS ORDERED: ZETIA10 MG PO (13:36)
[2019-06-19] MEDS ORDERED: CLOPIDOGREL75 MG PO (13:36)
[2019-06-19] MEDS ORDERED: LIPITOR40 MG PO (13:37)
[2019-06-19] MEDS ORDERED: CATAPRES-TTS 20.2 MG TRANSDERM (13:37)
[2019-06-19] MEDS ORDERED: IMDUR 30 MG TAB30 M1 PO (13:38)
[2019-06-19] MEDS ORDERED: HUMALOG MI100 UNIT/6 SUBQ (13:39)
[2019-06-19] MEDS ORDERED: TRADJENTA5 MG PO (13:39)
[2019-06-19] MEDS ORDERED: HOME MEDICATION OPHTHALMIC (13:39)
[2019-06-19] MEDS ORDERED: PEPCID20 MG PO (13:40)
[2019-06-19] MEDS ORDERED: GLUCOPHAGE500 MG PO (13:40)
[2019-06-19] MEDS ORDERED: COLACE 100 MG100 MG PO (13:42)
[2019-06-19] MEDS ORDERED: CHLORTHALIDONE25 MG PO (13:42)
--- NOTE | 2019-06-19 18:29 | NUR ---
DISCHARGE PLANS POSTPONED THIS PM-WHEN INFORMED PT VENTING HIS FRUSTRATION,SUSPICIOUS OF STAFF AND FAMILIES MOTIVES FOR DELAY IN [place] "I'M NEVER GOING TO GET OUT OF HERE-THEY KEEP TELLING ME ONE MORE DAY-ONE MORE DAY AND IT NEVER HAPPENS" NEGATIVE AND COMPLAINTIVE TAKING FRUSTRATIONS OUT ON NURSING STAFF STATING HE HASN'T GOTTEN ENOUGH ATTENTION OR CARE DESPITE MULTIPLE ATTEMPTS BY THIS RN TO CALM AND REASSURE. WAS EVENTUALLY ABLE TO BE REDIRECTED TO LAY DOWN IN ROOM. COOPERATIVE WITH CARES,ACCUCHECKS AND MEDS,NO PHYSICAL AGGRESSION. APPETITE GOOD-REPORTS GENERALIZED PAIN 1-2 ON PAIN SCALE AFTER SCHEDULED DOSES OF TYLENOL. INSULIN GIVEN PER ORDER WITHOUT RESISITANCE. USING ROLLER WALKER AND SBA X1 FOR AMBULATION.
[2019-06-19 19:50] VITALS: BP 133/87
--- NOTE | 2019-06-19 19:50 | NUR ---
ASSUMED CARE OF THE PT AT 191 PM. ALERT ET ORIENTED X 3. MAKES NEEDS KNOWN. HEART RATE REGULAR, LUNGS CLEAR BILATERALLY, RESP., EVEN, AND UNLABORED. +BS HEARD IN ALL 4 QUADRANTS. ABD SLIGHTLY ROUNDED. +PP BILATERALLY. DENIES ANXIETY, DEPRESSION, SI/HI. THE PT IS SLIGHTLY AGITATED THIS EVENING. DENIES PAIN AT THIS TIME. REMAINS ON 12 MINUTE CHECKS FOR HIS SAFETY.
[2019-06-20 08:25] VITALS: BP 149/86
--- NOTE | 2019-06-20 12:31 | NUR ---
PATIENT UP AB HELDER, MAKES NEEDS KNOWN. CALM AND AGREEABLE. TIRED DURING MORNING - GOOD APPETITE. WANTED TO KNOW WHEN GOING HOME. NO PAIN WHEN ASSESSED AND QUESTIONED. MED COMPLIANT. BLOOD SUGAR 99 AT BREAKFAST. HESITANT TO ANSWER QUESTIONS WHEN ADDRESSED. WORKED WITH OT THIS MORNING PER DR. BILL REQUEST
--- NOTE | 2019-06-21 00:50 | NUR ---
Care assumed of patient at 1900: Patient alert and oriented x3 with occasional confusion observed. Patient calm, pleasant and cooperative. Patient reported lower back pain at start of shift. Pillow positioned behind patient back. Administered PRN Ibuprofen. At 1 hour follow up, patient reported partial pain relief. Patient received scheduled Tylenol at bedtime. Patient reported no pain at 1 hour follow up. Patient enjoyed listening to the football game with other peers. Took HS medication without difficulty. Ate 100% HS snack. Blunted affect noted. Denies SI/HI/AH/VH. No s/s of delusional or paranoia behaviors. Patient reports that he is ready to go home. No agitation or anxiety observed this shift. Patient assisted to bed and has been resting quietly.
[2019-06-21 07:34] VITALS: BP 116/65
--- NOTE | 2019-06-21 08:38 | NUR ---
Followup: eating 100% meals. Wt stable. BG showing improvement and are being managed by endocronologist as well as pts hyperlipidemia. Remains low nutrition risk
--- NOTE | 2019-06-21 10:59 | NUR ---
CALLING OUT FREQUENTLY FOR HELP THIS AM "PUT THIS PILLOW BEHIND MY BACK, RAISE MY LEGS,HELP ME GET STRAIGHTENED OUT IN CHAIR" DEMANDING AND ABRUPT-STATING "I NEVER GET ANY HELP WITH ANYTHING" NEGATIVE COMMENTS REGARDING NURSING STAFF AND UNIT THROUGHOUT 1;1 WITH NURSING. DENIES SI/SH/HI. NO ACUTE PSYCHOSIS NOTED OR REPORTED. DOES INTERACT PLEASNTLY WITH PEERS-
--- NOTE | 2019-06-21 11:45 | NUR ---
MAYLIN met with Treatment team altagracia g pt been d/c to [facility]. MAYLIN sent a referral to [facility], and per the family request to [facility] at home. MAYLIN will follow-up with pt, and [facility].
--- NOTE | 2019-06-21 12:59 | NUR ---
SW recieved a voicemail from Sherrill at [facility] that was not accepted due to them not accepting [employer] as payer source. MAYLIN will follow-up with the family concerning the referral.
--- NOTE | 2019-06-21 14:59 | NUR ---
MAGNISIUM CITRATE 296 ML GIVEN PO AT 1330 PER ORDER FOR REPORTED CONSTIPATION-ADVISED HE HAD A BM DOCUMENTED FOR 06/20 PT STATES "IT WAS N'T BIG ENOUGH"
[2019-06-21 19:25] VITALS: BP 123/74
--- NOTE | 2019-06-21 22:39 | NUR ---
Care assumed of patient at 1915: Patient irritable and agitated at the start of shift. Patient placed one 15 minute phone call and received one 15 minute phone call. Patient is very upset about not being able to make discharge plans himself. States that he needs to "settle things with the house". Patient directed to social science analyst or MD regarding needing extra phone calls due to unit policy. Patient biligerent with nursing staff stating that staff is being racist. Patient cursing and yelling toward staff. Patient was able to calm down and listen to the baseball game. Took HS medication without difficulty. Denied pain or discomfort. Denied HS snack. TV was turned off at 2200 as usual to reduce external stimuli on the unit. Patient became beligerent again. Stating that staff lets everyone watch TV but him. Nurse attempted to provide Ativan PO PRN dose. Patient refused. Patient states that staff is mean and picking on him. Patient continued to argue about his DPOA and that he should be able to make all his decisions independently. Patient, again, re-directed to MD or social science analyst. Patient yelling and cursing despite attempted re-direction by 3 different staff members. MD notified of behaviors and needed guidance. Order was obtained for Haldol 2mg IM 1xdose and Ativan 1mg 1xdose now. Nurse spoke with patient and notified him that he had the option of taking PO medication or receiving the IM injections. Patient yelled and cursed that he is not taking either. Security notified. Patient did require forced injections with staff x4. Patient attempting to fight, hit and kick staff. Patient did have scant bleeding from injection sites to left deltoid. Nurse attempted to provide pressure to stop bleeding but patient continued to attempt to hit and kick. Bandaid applied but patient pulled it off and threw it at staff. Patient is sitting in recliner in the day room at this time. Continues to mumble and curse to self.
[2019-06-22 08:30] VITALS: BP 130/81
--- NOTE | 2019-06-22 08:30 | NUR ---
PT STATED HE SLEPT IN DINNING ROOM LAST NIGHT IN RECLINER. PT LUNGS CLEAR, DIMINISHED TO BASES. PT STATED HE HAS SOME PAIN TO LEFT BACK. PT STATED HE HAD NO CONCERNS, JUST TALKE ABOUT THE PHONE USE YESTERDAY AND THE FOOTBALL GAME. HE STATED ABOUT HIS DPOA HAS NO AUTHORITY OVER HIM DUE TO HE IS STILL ALIVE. THAT SHE CAN MAKE DECISIONS FOR HIM IF HE IS NOT ABLE, BUT HE IS STILL ALIVE.
--- NOTE | 2019-06-22 13:11 | NUR ---
PT LIKES TO SIT IN RECLINER WHEN NOT EATING MEALS.
--- NOTE | 2019-06-22 15:00 | NUR ---
PT LAYING DOWN AT THIS TIME. PT STATED THAT HE FEELS TIRED AT HOME PROB. FROM THE SPRAY. PT TALKING ABOUT IF HE GOES HOME HE IS IN BED MOST OF THE TIME ANYWAY AND THERE IS A TV IN HIS ROOM.
--- NOTE | 2019-06-22 16:47 | NUR ---
FELA HERE TO SEE PT AND DR. OLVERA. SHE IS WANTING TO TAKE HIM HOME TOMMORROW. INSISTS HE HAS 24 HOUR CARE. TALKED TO THIS NURSE THIS AM AND SHE STATED HE HAS BEEN BY HIMSELF BEFORE WITH THE BLINDNESS. SHE STATED THAT HE CAN GO TO ADULT DAYCARE FROM 8-5PM. HE WOULD BE ALONE AT NIGHT AND ONCE HE IS IN BED HE STAYS IN BED. PT ALSO TOLD THIS NURSE THIS AFTERNOON HE HAS A LIFE ALERT ALSO.
[2019-06-22 19:57] VITALS: BP 118/70
--- NOTE | 2019-06-22 21:47 | NUR ---
ASSUMED CARE OF THE PT AT 191 PM. THE PT WAS SITTING IN THE RECLINER IN THE DAYROOM WHEN THIS MAINTENANCE SERVICE TECHNICIAN CAME ON DUTY. HE TOOK HIS HS MEDICATIONS WITHOUT ANY DIFFICULTY. HEART RATE REGULAR. LUNGS CLEAR BILATERALLY, RESP., EVEN, AND UNLABORED. +BS HEARD IN ALL 4 QUADRANTS. ABD SOFT ET NONTENDOR. +PP BILATERALLY. DENIES PAIN AT THIS TIME. REMAINS ON 12 MINUTE CHECKS FOR HIS SAFETY.
--- NOTE | 2019-06-23 04:31 | NUR ---
THE PT HAS BEEN RESTLESS THIS SHIFT, MOVING AROUND IN THE BED, SITTING ON THE SIDE OF THE BED. DENIES PAIN AT THIS TIME. REMAINS ON 12 MINUTE CHECKS FOR HIS SAFETY.
[2019-06-23 09:09] VITALS: BP 123/78
--- NOTE | 2019-06-23 10:08 | NUR ---
ABRUPT INTERACTIONS WITH NURSING "TAKE ME TO MY ROOM" "GIVE ME SOMETHING FOR MY BACK" BLUNTED AFFECT. DYSPHORIC MOOD. NO NOTED INTERACTION WITH PEERS. REPORTS LOW BACK PAIN PARTIALLY RELIEVED WITH USE OF SCHEDULED TYLENOL AND LIDODERM PATCH. APPETITE GO0O. USING ROLLER WALKER FOR AMBULATION-REQUIRES SBA X1 FOR AMBULATION D/T VISUAL DEFECITS
[2019-06-23] MEDS ORDERED: ACETAMINOPHEN325 M1 PO (12:51)
[2019-06-23] MEDS ORDERED: HUMALOG MI100 UNIT/6 SUBQ (12:51)
[2019-06-23] MEDS ORDERED: ASPIRIN81 M2 PO (12:51)
[2019-06-23] MEDS ORDERED: HALOPERIDOL 5 MG5 MG PO (12:51)
[2019-06-23] MEDS ORDERED: NITROGLYCERIN0.4 MG SUBLING (12:51)
[2019-06-23] MEDS ORDERED: HALOPERIDOL 1 MG1 MG PO (12:51)
[2019-06-23] MEDS ORDERED: LIDOPATCH1 EACH TRANSDERM (12:51)
[2019-06-23 13:15] VITALS: BP 123/78
--- NOTE | 2019-06-23 13:53 | NUR ---
DISCHARGE INSTRUCTIONS REVIEWED WITH PATIENT AND DPOA FELA-FELA STATES UNDERSTANDING OF AND DENIES QUESTIONS/CONCERNS. FOLLOW UP REFERALLS REVIEWED WITH FELA IN ADDITION TO DISCHARGE RX AND MEDICARE DC FORM SIGNED PRIOR TO DC. LEFT VIA WHEELCHAIR ACCOMPNIED BY FELA AND UNIT STAFF-PT IS INSISTING THAT HE HAD 200-400 DOLLARS IN [place] IN ER PRIOR TO COMING TO FLOOR-INITALLY STATES [place] WAS IN [place] AND AFTER BEING INFORMED THAT [place] WAS AT [facility] IT WAS IN AN ENVELOPE IN HIS POCKET-SECURITY CALLED X2 AND STATE THEY HAVE NO VALUABLES ENVELOPE FOR HIM-STAFF TO BRING PT TO [facility] PRIOR TO DC TO FOLLOW UP
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
== END 2019-06-23 13:50 | disposition home or self-care (01) | DRG 885 ==
LOC: ER 16:35 → EROBS 21:52 → SBH 21:52
PROVIDERS: Emergency Medicine; Internal Medicine; ADMIT Psychiatry & Neurology Psychiatry
DX: F32.3 Major depressive disorder, single episode, severe with psychotic features (principal); R45.851 Suicidal ideations; E11.42 Type 2 diabetes mellitus with diabetic polyneuropathy; E11.65 Type 2 diabetes mellitus with hyperglycemia; E78.5 Hyperlipidemia, unspecified; E11.51 Type 2 diabetes mellitus with diabetic peripheral angiopathy without gangrene; I25.10 Atherosclerotic heart disease of native coronary artery without angina pectoris; H54.8 Legal blindness, as defined in USA; E11.319 Type 2 diabetes mellitus with unspecified diabetic retinopathy without macular edema; E66.9 Obesity, unspecified; F41.9 Anxiety disorder, unspecified; R26.9 Unspecified abnormalities of gait and mobility; N18.3 Chronic kidney disease, stage 3 (moderate); I12.9 Hypertensive chronic kidney disease with stage 1 through stage 4 chronic kidney disease, or unspecified chronic kidney disease; K59.00 Constipation, unspecified; Z68.32 Body mass index [BMI] 32.0-32.9, adult; Z95.1 Presence of aortocoronary bypass graft; Z95.5 Presence of coronary angioplasty implant and graft; Z79.02 Long term (current) use of antithrombotics/antiplatelets; Z79.82 Long term (current) use of aspirin; Z79.899 Other long term (current) drug therapy; Z91.013 Allergy to seafood
CPT/HCPCS: 10880